=== PATIENT | female | born 1975 | race Caucasian/White ===

== ENCOUNTER 2018-06-01 07:49 | Day surgery (SDC) | payer OTHER ==
[2018-06-01 08:31] LABS: ADD MAN DIFF? NO
[2018-06-01 08:39] LABS: WHITE BLOOD COUNT 8.9 10^3/ul (4.8-10.8)
[2018-06-01 08:40] LABS: BASOPHILS % 0.2 % (0.0-2.0); EOSINOPHILS # 0.1 10^3/ul (0.0-0.5); EOSINOPHILS % 1.5 % (0.0-7.0); HEMATOCRIT 26.5 % (37.0-47.0); LYMPHOCYTES # 1.5 10^3/ul (0.8-2.9); LYMPHOCYTES % 17.3 % (15.0-51.0); MEAN CORPUSCULAR HEMOGLOBIN 23.7 pg (29.0-33.0); MEAN CORPUSCULAR HGB CONC 30.6 g/dl (32.0-37.0); MEAN CORPUSCULAR VOLUME 77.5 fl (82.0-101.0); MEAN PLATELET VOLUME 10.9 fl (7.4-10.4); MONOCYTE # 0.6 10^3/ul (0.3-0.9); MONOCYTES % 6.6 % (0.0-11.0); NEUTROPHIL # 6.6 10^3/ul (1.6-7.5); NEUTROPHILS % 74.1 % (39.0-77.0); PLATELET COUNT 384 10^3/UL (140-415); RED BLOOD COUNT 3.42 10^6/ul (4.20-5.40); RED CELL DISTRIBUTION WIDTH 16.9 % (11.5-14.5)
[2018-06-01 08:42] LABS: HOLD TRANSMISSIONS 1
[2018-06-01 08:45] LABS: HEMOGLOBIN 8.1 g/dl (12.0-16.0)
[2018-06-01] MEDS ORDERED: MIDAZOLAM 1 MG/ML 2 ML INJ (09:42)
[2018-06-01] MEDS ORDERED: PROCHLORPERAZINE 10 MG INJ IV (10:00)
[2018-06-01] MEDS ORDERED: HYDROmorphONE 1 MG/5 ML IV SYRINGE IV ×2 (10:00)
[2018-06-01] MEDS ORDERED: ONDANSETRON 4 MG INJ IV (10:00)
[2018-06-01] MEDS ORDERED: OXYCODONE/ACETAMINOPHEN (5/325) TAB PO (10:00)
[2018-06-01] MEDS ORDERED: MEPERIDINE 25 MG INJ IV (10:00)
[2018-06-01] MEDS ORDERED: DIPHENHYDRAMINE 50 MG INJ IV (10:00)
[2018-06-01] MEDS ORDERED: FENTAnyl 50 MCG/ML VIAL IV (10:00)
[2018-06-01] MEDS ORDERED: LIDOCAINE 2% (SDV) 5 ML INJ (10:01)
[2018-06-01] MEDS ORDERED: FAMOTIDINE 20 MG INJ (10:01)
[2018-06-01] MEDS ORDERED: PROPOFOL 40 ML (10:01)
[2018-06-01] MEDS ORDERED: ONDANSETRON 4 MG INJ (10:01)
[2018-06-01] MEDS ORDERED: CEFAZOLIN 1 GM INJ (10:01)
[2018-06-01] MEDS ORDERED: DEXAMETHASONE 4 MG/ML 5 ML INJ (10:01)
[2018-06-01] MEDS ORDERED: FENTAnyl 50 MCG/ML VIAL (10:04)
[2018-06-01] MEDS: HYDROmorphONE 1 MG/5 ML IV SYRINGE IV (11:01)
== END 2018-06-01 13:25 | disposition home or self-care (01) ==
LOC: SDS 07:49
DX: N92.0 Excessive and frequent menstruation with regular cycle (principal); D64.9 Anemia, unspecified
CPT/HCPCS: 58563; 84703; 85025; 86850; 86900; 86901; 88305; 88331